=== PATIENT | female | born 1955 | race Caucasian/White ===

== ENCOUNTER → 2017-11-28 08:47 | Day surgery (SDC) | payer OTHER, SELFPAY ==
[2017-11-26 14:12] VITALS: BMI 22.1
--- NOTE | 2017-11-28 | PATH_ITS ---
[facility] Accession Number: [id number] . 01 Material submitted: . GALLBLADDER . 02 Diagnosis: Gallbladder: Cholelithiasis with associated mild acute and chronic cholecystitis. Small benign lymph node. MRV/12/02/2017 . 02 Electronically signed: . Erickson Cam MD, Pathologist NPI- [id number] . 01 Gross description: . Received in formalin, labeled 1) Gallbladder, is an intact gallbladder (length-11.1 cm, diameter-4.6 cm) with encarnacion-pink smooth shiny serosa and a patent cystic duct. A possible lymph node (0.3 x 0.2 x 0.1 cm) is identified. The lumen contains clear colorless watery fluid and multiple fragmented encarnacion-yellow friable calculi (4.0 x 3.8 x 1.0 cm). The mucosa is pale pink, flat with a focally trabeculated raised texture. The wall is up to 0.1 cm thick. No nodules, masses or lesions are identified. Section code: (A1) cystic duct resection margin and two serial sections from the body; (A2) two longitudinal sections from the fundus; (A3) one intact lymph node. ([id number]) /MRV . 02 Pathologist provided ICD-10: K80.66 . 02 CPT . 587634 Performed at: 01 [facility] [address], [place], [place] [id number] MD Merlin Kemp MD Phone: [phone] Performed at: 02 [facility] [address] [place], [place] [id number] MD Osman Hernandez MD Phone: [phone]
[2017-11-28 09:41] VITALS: BP 149/72; PULSE 74; RESP 16; TEMP 36.5
[2017-11-28] MEDS: LACTATED RINGERS 1,000 ML 100 ML IV ×2 (09:48→11:58)
[2017-11-28 09:53] VITALS: BMI 22.1
--- NOTE | 2017-11-28 10:56 | PM.HP.1 ---
History of Present Illness Chief complaint: [id number] Narrative: Tiffany Manuel is a 62 year old female She had a palpable mass in the right upper quadrant that was consistent with hydrops of the gallbladder. She was entirely asymptomatic but has been on a low-fat diet. She is here now for removal of her gallbladder. Ultrasound and CT were consistent with gallstones, enlarged gallbladder, and a possible dilatation of her common bile duct. [facility] Medical History Anemia (Acute) Arthritis (Acute) Surgical History History of cataract surgery (Inactive) Hx of appendectomy (Inactive) Hx of tonsillectomy (Inactive) Social History household members: spouse Smoking Status: Never smoker alcohol intake: current alcohol intake frequency: 0-2 drinks per day Meds Home Medications Medication Instructions Recorded Confirmed Type No Known Home Medications 11/28/17 11/28/17 History Generic Name Dose Route Start Last Admin Trade Name Freq PRN Reason Stop Dose Admin Fentanyl 50 mcg 11/28/17 10:05 Sublimaze IV Q5MIN PRN Moderate Pain Lactated Ringer's 1,000 mls @ 100 mls/hr 11/28/17 01:00 11/28/17 09:48 Lactated Ringers IV 100 mls/hr CONT NAWAF Administration Lactated Ringer's 1,000 mls @ 42 mls/hr 11/28/17 10:15 Lactated Ringers IV CONT NAWAF Allergies Allergy/AdvReac Type Severity Reaction Status Date / Time No Known Drug Allergies Allergy Verified 11/26/17 14:15 Review of Systems Review of Systems All systems reviewed & are unremarkable except as noted in HPI and below Gastrointestinal Comments: Has continued to feel a mass in the right upper quadrant. Exam Vital Signs (past 8 hours): Vital Signs - 8 hr 11/28/17 09:41 Temperature 97.7 F Pulse Rate 74 Respiratory Rate 16 Blood Pressure 149/72 H Oxygen Delivery Method Room Air Narrative Exam Narrative: Co operative in no apparent distress. Eyes are nonicteric. Neck is supple. Lungs are clear to auscultation without rales or rhonchi. Heart regular rate and rhythm without murmur or gallop. Abdomen is scaphoid soft. I do not feel the mass that I felt in the office at this time. There is absolutely no tenderness. Assessment & Plan Plan: Plan: History of hydrops of the gallbladder. Dilated duct. Recommend laparoscopic cholecystectomy and intraoperative cholangiogram. I have discussed the operation with the patient including risks of bleeding, infection, hernia, injury to internal organs or ducts which would require major operation repair, bile leakage. She appears to understand and wishes to proceed.
--- NOTE | 2017-11-28 11:02 | P.HP_ITS ---
History of Present Illness Chief complaint: [id number] Narrative: Tiffany Manuel is a 62 year old female She had a palpable mass in the right upper quadrant that was consistent with hydrops of the gallbladder. She was entirely asymptomatic but has been on a low -fat diet. She is here now for removal of her gallbladder. Ultrasound and CT were consistent with gallstones, enlarged gallbladder, and a possible dilatation of her common bile duct. [facility] Medical History Anemia (Acute) Arthritis (Acute) Surgical History History of cataract surgery (Inactive) Hx of appendectomy (Inactive) Hx of tonsillectomy (Inactive) Social History household members: spouse Smoking Status: Never smoker alcohol intake: current alcohol intake frequency: 0-2 drinks per day Meds Home Medications Medication Instructions Recorded Confirmed Type No Known Home Medications 11/28/17 11/28/17 History Generic Name Dose Route Start Last Admin Trade Name Freq PRN Reason Stop Dose Admin Fentanyl 50 mcg 11/28/17 10:05 Sublimaze IV Q5MIN PRN Moderate Pain Lactated Ringer's 1,000 mls @ 100 mls/hr 11/28/17 01:00 11/28/17 09:48 Lactated Ringers IV 100 mls/hr CONT NAWAF Administration Lactated Ringer's 1,000 mls @ 42 mls/hr 11/28/17 10:15 Lactated Ringers IV CONT NAWAF Allergies Allergy/AdvReac Type Severity Reaction Status Date / Time No Known Drug Allergies Allergy Verified 11/26/17 14:15 Review of Systems Review of Systems All systems reviewed & are unremarkable except as noted in HPI and below Gastrointestinal Comments: Has continued to feel a mass in the right upper quadrant. Exam Vital Signs (past 8 hours): Vital Signs - 8 hr 3 11/28/17 09:41 Temperature 97.7 F Pulse Rate 74 Respiratory Rate 16 Blood Pressure 149/72 H Oxygen Delivery Method Room Air Narrative Exam Narrative: Co operative in no apparent distress. Eyes are nonicteric. Neck is supple. Lungs are clear to auscultation without rales or rhonchi. Heart regular rate and rhythm without murmur or gallop. Abdomen is scaphoid soft. I do not feel the mass that I felt in the office at this time. There is absolutely no tenderness. Assessment & Plan Plan: Plan: History of hydrops of the gallbladder. Dilated duct. Recommend laparoscopic cholecystectomy and intraoperative cholangiogram. I have discussed the operation with the patient including risks of bleeding, infection, hernia, injury to internal organs or ducts which would require major operation repair, bile leakage. She appears to understand and wishes to proceed.
--- NOTE | 2017-11-28 11:02 | PM.PREOP ---
Pre-operative Note Interval Note Pre-op Check: History & Physical exam performed today
[2017-11-28] MEDS: CEFAZOLIN 2 GM/100 ML FROZ.PIGGY IV (11:16)
--- NOTE | 2017-11-28 11:51 | SUR.OPER ---
Supine on padded OR bed, head on pillow, left arm padded and tucked at side, legs uncrossed, safety belt at thigh, tape over blanket over lower legs .
--- NOTE | 2017-11-28 12:00 | DI.RAD.S_ITS ---
PROCEDURE: XR CHOLANGIOGRAM OPERATIVE INDICATIONS: 62-year-old female undergoing laparoscopic cholecystectomy. COMPARISON: [facility], US, ABDOMEN COMPLETE, 10/07/2017, 14:29. [facility], CT, ABDOMEN WITH CONTRAST, 09/23/2017, 10:00. FINDINGS: Biliary ducts: The surgeon injected contrast into the biliary ducts after cannulation of the cystic duct stump. Visualized intra- and extrahepatic bile ducts are normal in caliber, without strictures. No intraluminal filling defects to suggest retained ductal stones or sludge. No evidence for iatrogenic ductal injury. Duodenum: Contrast flows promptly through the sphincter of Oddi into the duodenum, which appears normal in caliber. IMPRESSION: Normal intraoperative cholangiogram. Dictated by: Genaro Dykes M.D. on 11/28/2017 at 12:59 Approved by: Genaro Dykes M.D. on 11/28/2017 at 13:01
[2017-11-28] MEDS: BUPIVACAINE 0.5% (PF) 30 ML VIAL INJ (12:01)
[2017-11-28] MEDS: IOPAMIDOL 50 ML VIAL INJ (12:02)
[2017-11-28 13:14] VITALS: BP 117/72; PULSE 81; RESP 15; TEMP 36.2; O2SAT 98
[2017-11-28 13:18] VITALS: BP 117/84; PULSE 92; RESP 16; O2SAT 98
--- NOTE | 2017-11-28 13:21 | PM.OP.1 ---
Operative Date/Time/Diagnoses - Date of procedure: 11/28/17 Time of procedure: 13:21 Pre-op diagnosis: Cholelithiasis hydrops of the gallbladder obstructed cystic duct. Post-op diagnosis: same Procedure & Clinicians Procedure: Laparoscopic cholecystectomy with intraoperative cholangiogram Same procedure as scheduled: Yes Indications: Hydrops. [facility] protocol was followed Surgeon: Marcelo Norman Anesthesia Type: General Operative Notes Findings: Generous common bile duct with no filling defect and free flow into the duodenum. Pure clear bile in the gallbladder. Large stone obstructing the cystic duct. Closure Type: primary Specimen(s): other (Gallbladder) Implants & Drains: None Estimated Blood Loss (mL): 7 Blood products transfused: none Procedure in detail: The patient is placed supine on the operating room table underwent general endotracheal anesthesia. She was prepped and draped in the usual fashion. Curvilinear incision was made at the lower edge of the umbilicus and carried down under direct vision in the peritoneal cavity. Stay sutures of 0 Polysorb were placed in the fascia. Bliss cannula was inserted. The abdomen is insufflated. Patient's repositioned 3 distal ports were placed on the right costal margin after injecting local anesthetic. The gallbladder was identified as a tensely distended structure. A needle was inserted and I aspirated 120 cc of absolutely crystal clear fluid. There was still additional fluid left but this gave me enough laxity of the wall to be able to grasp it easily manipulated. The gallbladder was gas and elevated. Dissection was began near the end of the gallbladder. A ductal structure singular nature with from surrounding structures. A clip was placed at its junction with the cystic duct and a small jeanne was intentionally made in the cystic duct. A cholangiocatheter was inserted through this neck and a cholangiogram performed. It showed a generous bile duct but no filling defects and free flow into the duodenum. The entry of the cystic duct into the common duct seemed a little low. The cholangiocatheter was removed and 2 clips placed on the duct and the duct was divided leaving most 2 clips in the patient. I dissected out an artery going toward the gallbladder but a branch of it was going back into the liver and therefore I took branches as they entered the gallbladder applying multiple clips as I went and ultimately stop the blood supply to the gallbladder. The gallbladder is dissected from its bed in the liver using blunt dissection and cautery. It was ultimately detached and placed in a bag. It was removed without difficulty through the umbilical port. The right upper quadrant was irrigated and suctioned free of fluid. Meticulous hemostasis was achieved. There was 1 small side branch of an artery that had 2 clips placed on it. The right upper quadrant irrigated and suctioned free of fluid. The ports were all removed. Stay sutures at the umbilicus were tied. An additional 2 0 Maxon was placed between the other stitches. The wounds were irrigated in 4 0 Polysorb subcuticular stitches and Steri-Strips used to close the wounds. Band-Aids were applied the patient was awakened and taken to recovery room extubated in good condition. Complications: none Condition: stable Disposition: PACU
[2017-11-28 13:23] VITALS: BP 119/66; PULSE 91; RESP 17; O2SAT 97
[2017-11-28] MEDS: fentaNYL 100 MCG/2 ML INJ 50 MCG IV ×2 (13:27→13:36)
[2017-11-28 13:50] VITALS: BP 130/76; PULSE 75; RESP 16; O2SAT 97
[2017-11-28] MEDS: HYDROCODONE/ACET 5/325 TABLET 1 TAB PO (14:00)
[2017-11-28 14:05] VITALS: BP 115/71; PULSE 61; RESP 18; TEMP 36.1; O2SAT 99
== END | disposition home or self-care (01) ==
PROVIDERS: PCP Acupuncturist; Visit Provider Specialist
PROC: 0FT44ZZ Resection of Gallbladder, Percutaneous Endoscopic Approach (ICD-10-PCS; CPT 47562; principal; 2017-11-28 11:15)
DX: K80.21 Calculus of gallbladder without cholecystitis with obstruction (principal); K82.1 Hydrops of gallbladder
CPT/HCPCS: 47563; 74300; J0330; J0690; J1100; J2405; J2704; J3010

== ENCOUNTER → 2020-06-09 09:41 | Outpatient (CLI) | payer MEDICARE, SELFPAY ==
--- NOTE | 2020-06-09 11:02 | DI.CT.S_ITS ---
PROCEDURE: CT CHEST ABD PEL W CON INDICATIONS: Malignant neoplasm of endometrium TECHNIQUE: After the administration of oral and intravenous contrast, 5 mm thick sections acquired from the lung apices to the symphysis. 5 mm coronal and sagittal reformats were performed, with additional 7 mm coronal MIP reformats through the lungs. For radiation dose reduction, the following was used: automated exposure control, adjustment of mA and/or kV according to patient size. COMPARISON: [facility], CT, ABDOMEN WITH CONTRAST, 09/23/2017, 10:00. [facility], US, US PELVIC COMPLETE, 03/01/2020, 13:40. FINDINGS: Image quality: Excellent. CHEST: Lungs and pleura: No acute airspace opacities. No pleural effusions or pneumothorax. Central and peripheral airways appear patent and normal in caliber. Mediastinum: There are few small pretracheal, paratracheal mediastinal, and left supraclavicular lymph nodes which do not meet size criteria for adenopathy but are suspicious given number and position. No other discrete lymph node abnormality. Heart size is normal. No pericardial effusion. Thoracic aorta and central pulmonary arteries are normal in size. Esophagus is normal in caliber. No hiatal hernia. Chest wall: No axillary or other supraclavicular adenopathy by size criteria. Thyroid gland demonstrates a few tiny right lobe nodules. . ABDOMEN: Solid organs: Liver is normal in size and enhancement. Focal hypodensity adjacent to the falciform ligament, nonspecific. Gallbladder is surgically absent . Biliary system is non dilated. Pancreas enhances normally. Spleen is normal in size and enhancement. No adrenal nodules. Kidneys demonstrate normal size and enhancement, without hydronephrosis. Possible nonobstructing punctate left lower pole intrarenal calcification. Peritoneum and bowel: Bowel loops demonstrate normal wall thickness and caliber. Increased quantity of solid stool in the rectum. Diverticulosis and decompression of the distal sigmoid colon. Increased quantity of solid stool elsewhere in the colon. No free fluid or air. Nodes and vessels: There are a few borderline retroperitoneal lymph nodes measuring up to 9 mm in short axis No retroperitoneal or mesenteric adenopathy by size criteria. Aorta and inferior vena cava are normal in size. Miscellaneous: No ventral hernias. PELVIS: Genitourinary: Bladder wall thickness is normal. The uterus is surgically absent. Ovarian tissue is not identified. Miscellaneous: No inguinal hernias or adenopathy. Bones: No suspicious bony lesions. No vertebral body compression fractures. IMPRESSION: 1. Borderline lymph nodes in the left supraclavicular, mediastinal, and retroperitoneal regions. The largest in the retroperitoneum measures up to 9 mm. 2. Nonspecific focal hypodensity in the liver adjacent to the falciform ligament. This is possibly focal fat deposition, although metastatic disease is not excluded and continued attention to this area on subsequent studies is recommended. This was not as prominent on prior studies. 3. Possible nonobstructing left intrarenal calcification. Dictated by: Lety Calvo M.D. on 06/09/2020 at 12:56 Approved by: Lety Calvo M.D. on 06/09/2020 at 13:11
== END ==
PROVIDERS: PCP Family Medicine; Referring Provider Obstetrics & Gynecology; Visit Provider Obstetrics & Gynecology
DX: C54.1 Malignant neoplasm of endometrium (principal)
CPT/HCPCS: 71260; 74177; Q9967

== ENCOUNTER → 2021-11-27 10:49 | Outpatient (CLI) | payer MEDICARE, SELFPAY ==
[2021-11-27 22:17] LABS: COVID19 - ORCAS (NP or Nasal) Negative (Negative)
== END ==
PROVIDERS: PCP Family Medicine; Visit Provider Family Medicine
DX: Z20.822 Contact with and (suspected) exposure to COVID-19 (principal)
CPT/HCPCS: C9803; U0003